=== PATIENT | female | born 1980 | race Hispanic/Latino ===

== ENCOUNTER → 2020-10-23 | Outpatient (CLI) | payer OTHER, SELFPAY ==
[~2020-10-23] VITALS: Ht 25.4 cm; Wt 79.7 kg
== END | disposition home or self-care (01) ==
LOC: DTH 12:50
PROVIDERS: ATTEND Surgery
DX: K21.9 Gastro-esophageal reflux disease without esophagitis (principal); E11.9 Type 2 diabetes mellitus without complications; E78.00 Pure hypercholesterolemia, unspecified; K76.0 Fatty (change of) liver, not elsewhere classified
CPT/HCPCS: 97802

== ENCOUNTER 2020-11-30 06:45 | Day surgery (SDC) | payer OTHER ==
[2020-11-30] VITALS (8 sets, daily range): BP systolic 110–122; BP diastolic 60–82
[2020-11-30] MEDS ORDERED: 0.9%NACL 1000ML 1,000 ML IV ONE (07:49)
[2020-11-30] MEDS ORDERED: LIDOCAINE PF 100MG/5ML (2%) SYRINGE 5ML ONE (08:46)
[2020-11-30] MEDS ORDERED: PROPOFOL 10 MG/ML 20ML VIAL IV ONE (08:46)
[2020-11-30] MEDS ORDERED: MIDAZOLAM HCL 1 MG/ML 2ML VIAL ONE (08:46)
== END 2020-11-30 09:55 | disposition home or self-care (01) ==
LOC: DAH 06:45
PROVIDERS: ATTEND Surgery
DX: K21.9 Gastro-esophageal reflux disease without esophagitis (principal); E66.01 Morbid (severe) obesity due to excess calories; Z68.36 Body mass index [BMI] 36.0-36.9, adult; I10 Essential (primary) hypertension; Z90.49 Acquired absence of other specified parts of digestive tract; E11.9 Type 2 diabetes mellitus without complications; Z79.899 Other long term (current) drug therapy; Z20.822 Contact with and (suspected) exposure to COVID-19
CPT/HCPCS: 43235; 71045; 81025; 87635; 93005; A4215 ×2; A4221; A4222; A4223; A4606; A4620; A4657; A4663; C9803; J2001; J2250; J2704; J7030

== ENCOUNTER 2021-05-10 09:00 | Inpatient (IN) | payer OTHER ==
[~2021-05-10] VITALS: Ht 147.3 cm; Wt 80.5 kg
[2021-06-18 15:31] LABS: BASOPHILS % (AUTO) 0.4 % (0.0-5.0); EOSINOPHILS % (AUTO) 2.2 % (0.0-8.0); HEMATOCRIT 35.3 % (36-48); LYMPHOCYTES % (AUTO) 20.6 % (21.0-51.0); MEAN CORPUSCULAR HEMOGLOBIN 30.1 pg (27.0-33.0); MEAN CORPUSCULAR VOLUME 88.5 fL (79-99); MONOCYTES % (AUTO) 7.3 % (3.0-13.0); NEUTROPHILS % (AUTO) 69.2 % (40.0-77.0); PLATELET COUNT (AUTO) 303 K/uL (130-400); RED BLOOD CELL COUNT(AUTO) 3.99 MIL/uL (4.00-5.50); RED CELL DISTRIBUTION WIDTH 12.5 % (11.0-15.5); WHITE BLOOD COUNT (AUTO) 10.1 K/uL (4.8-10.8)
[2021-06-18 15:40] VITALS: BP 138/62
[2021-06-18 15:42] LABS: CREATININE 0.7 mg/dL (0.5-1.5); POTASSIUM 3.4 mmol/L (3.5-5.1)
[2021-06-18 15:44] LABS: INR 1.03 (0.85-1.15); PROTHROMBIN TIME 11.2 SEC (9.6-11.6)
[2021-06-21] VITALS (22 sets, daily range): BP systolic 98–150; BP diastolic 52–92
[2021-06-21] MEDS: CEFOXITIN SODIUM 2 GM VIAL IVP SCH ×2 (08:00→11:35)
[2021-06-21] MEDS ORDERED: LACTATED RINGERS 1000ML 1,000 ML IV ONE (08:10)
[2021-06-21] MEDS ORDERED: SCOPOLAMINE HYDROBROMIDE 1 EACH ADH..PATCH TD ONE (08:40)
[2021-06-21] MEDS ORDERED: MAGNESIUM SULFATE 1 GM/2 ML VIAL ONE (09:02)
[2021-06-21] MEDS ORDERED: DEXMEDETOMIDINE HCL 200 MCG/2 ML VIAL IV ONE (09:02)
[2021-06-21] MEDS ORDERED: SUCCINYLCHOLINE CHLORIDE 20 MG/ML 10 ML VIAL ONE (09:09)
[2021-06-21] MEDS ORDERED: LIDOCAINE PF 100MG/5ML (2%) SYRINGE 5ML ONE (09:09)
[2021-06-21] MEDS ORDERED: MIDAZOLAM HCL 1 MG/ML 2ML VIAL ONE (09:10)
[2021-06-21] MEDS ORDERED: FENTANYL CITRATE PF 50 MCG/1 ML 2ML VIAL ONE ×2 (09:10→12:57)
[2021-06-21] MEDS ORDERED: PROPOFOL 10 MG/ML 20ML VIAL IV ONE (09:10)
[2021-06-21] MEDS ORDERED: ONDANSETRON 4MG INJ ONE (09:10)
[2021-06-21] MEDS ORDERED: ROCURONIUM 10MG/1ML SYR 10 MG/ML ML ONE (09:11)
[2021-06-21] MEDS ORDERED: BUPIVACAINE/PF 0.5% 30ML VIAL ONE (12:32)
[2021-06-21] MEDS ORDERED: KETOROLAC 30MG VIAL (30MG/ML) ONE ×2 (12:34→13:35)
[2021-06-21] MEDS ORDERED: MEPERIDINE-PF 25 MG/ML SYG ONE (12:34)
[2021-06-21] MEDS ORDERED: GLYCOPYRROLATE 1 MG/5 ML SYRINGE ONE (12:38)
[2021-06-21] MEDS ORDERED: NEOSTIGMINE 5MG/5ML SYR IV ONE (12:38)
[2021-06-21] MEDS: CEFAZOLIN SODIUM 1 GM VIAL IVP SCH ×2 (13:00→19:52)
[2021-06-21] MEDS: LACTATED RINGERS 1000ML 1,000 ML IV SCH ×2 (13:00→19:52)
[2021-06-21] MEDS: INSULIN HUMULIN R 100 UNIT/ML 3ML SQ SCH ×2 (16:30→20:12)
[2021-06-21] MEDS: MORPHINE 4 MG SYG IVP PRN ×2 (17:01→22:12)
[2021-06-21] MEDS: SIMETHICONE 80 MG TAB.CHEW PO PRN (19:51)
[2021-06-21] MEDS: ENOXAPARIN SODIUM 30 MG/0.3 ML SQ SCH (19:51)
[2021-06-21] MEDS: FAMOTIDINE 20MG VIAL IV SCH (19:52)
[2021-06-21] MEDS: ONDANSETRON 4MG INJ IVP PRN (22:12)
[2021-06-22] MEDS: MORPHINE 4 MG SYG IVP PRN ×2 (02:14→06:30)
[2021-06-22 03:39] VITALS: BP 128/72
[2021-06-22 04:20] LABS: CREATININE 0.6 mg/dL (0.5-1.5); POTASSIUM 3.7 mmol/L (3.5-5.1)
[2021-06-22] MEDS: INSULIN HUMULIN R 100 UNIT/ML 3ML SQ SCH ×2 (06:20→11:30)
[2021-06-22] MEDS: LACTATED RINGERS 1000ML 1,000 ML IV SCH (06:20)
[2021-06-22] MEDS: ONDANSETRON 4MG INJ IVP PRN (06:29)
[2021-06-22] MEDS: SIMETHICONE 80 MG TAB.CHEW PO PRN (06:30)
[2021-06-22 08:07] VITALS: BP 123/74
[2021-06-22 09:23] LABS: MEAN CORPUSCULAR HEMOGLOBIN 29.5 pg (27.0-33.0); MEAN CORPUSCULAR HGB CONC 33.1 g/dL (32.0-36.0); MEAN CORPUSCULAR VOLUME 89.3 fL (79-99); PLATELET COUNT (AUTO) 358 K/uL (130-400); RED BLOOD CELL COUNT(AUTO) 4.03 MIL/uL (4.00-5.50); RED CELL DISTRIBUTION WIDTH 12.3 % (11.0-15.5); WHITE BLOOD COUNT (AUTO) 19.3 K/uL (4.8-10.8)
[2021-06-22 09:37] LABS: CREATININE 0.8 mg/dL (0.5-1.5); POTASSIUM 3.7 mmol/L (3.5-5.1)
[2021-06-22 09:42] LABS: ALBUMIN 3.8 g/dL (3.5-5.0); BILIRUBIN,TOTAL 0.5 mg/dL (0.2-1.0); TOTAL PROTEIN, SERUM 8.6 g/dL (6.0-8.3)
[2021-06-22] MEDS ORDERED: KETOROLAC 30MG VIAL (30MG/ML) IVP SCH (10:00)
[2021-06-22] MEDS: FAMOTIDINE 20MG VIAL IV SCH (10:06)
[2021-06-22] MEDS: ENOXAPARIN SODIUM 30 MG/0.3 ML SQ SCH (10:06)
[2021-06-22 10:46] LABS: BAND NEUTROPHILS % (MANUAL) 3 % (0-2); EOSINOPHILS % (MANUAL) 1 % (1-6); LYMPHOCYTES % (MANUAL) 22 % (22-44); MAN.DIFF COMMENT-IMPRESSION MANUAL DIFFERENTIAL; MONOCYTES % (MANUAL) 4 % (2-9); SEGMENTED NEUTROPHILS % 70 % (40-70)
[2021-06-22 10:47] LABS: PLATELET MORPHOLOGY COMMENT ADEQUATE
[2021-06-22 11:33] VITALS: BP 136/71
== END 2021-06-22 13:44 | disposition home or self-care (01) | DRG 621 ==
LOC: EDSTATUS 09:00 → DAHIP 06-21 07:46 → 4AH 06-21 13:51
PROVIDERS: ADMIT Surgery; ATTEND Surgery
PROC: 0DB64Z3 Excision of Stomach, Percutaneous Endoscopic Approach, Vertical (ICD-10-PCS; principal; 2021-06-21 11:34)
DX: E66.01 Morbid (severe) obesity due to excess calories (principal); K21.9 Gastro-esophageal reflux disease without esophagitis; Z20.822 Contact with and (suspected) exposure to COVID-19; I10 Essential (primary) hypertension; Z68.37 Body mass index [BMI] 37.0-37.9, adult
CPT/HCPCS: 36415; 80048; 80053; 82948; 84703; 85025; 85610; 85730; 86850; 86900; 86901; 87635; 94760; G0378; J0330; J0690; J0694; J1650; J1885; J2001; J2175; J2250; J2270; J2405; J2704; J2710; J3010; J3475; J3490; J7030; J7120